=== PATIENT | male | born 1980 | race Caucasian/White ===

== ENCOUNTER 2017-05-10 11:24 | Emergency (ER) | payer OTHER ==
[2017-05-10 11:33] VITALS: BP 136/83; PULSE 100; RESP 18; TEMP 99.3; O2SAT 100
--- NOTE | 2017-05-10 12:36 | C.PDOC ---
History Of Present Illness 37 year old male presents to ED for evaluation of painful abscess to left groin for the past 3 days. Denies drainage, fever, chills, or any other complaints at this time. Time Seen by Provider: 05/10/17 11:54 Chief Complaint (Nursing): Abnormal Skin Integrity History Per: Patient History/Exam Limitations: no limitations Onset/Duration Of Symptoms: Days (3) Current Symptoms Are (Timing): Still Present Location Of Injury: Left: Perineum Quality Of Symptoms: Painful. denies: Draining Recent travel outside of the [place]: No Additional History Per: Patient Past Medical History Reviewed: Historical Data, Nursing Documentation, Vital Signs Vital Signs: Last Vital Signs Temp 99.3 F 05/10/17 11:31 Pulse 100 H 05/10/17 11:31 Resp 18 05/10/17 11:31 BP 136/83 05/10/17 11:31 Pulse Ox 100 05/10/17 12:49 Family History: States: Unknown Family Hx - Social History Hx Alcohol Use: Yes Hx Substance Use: No - Immunization History Hx Tetanus Toxoid Vaccination: No Hx Influenza Vaccination: No Hx Pneumococcal Vaccination: No Review Of Systems Except As Marked, All Systems Reviewed And Found Negative. Constitutional: Negative for: Fever, Chills Skin: Positive for: Other (painful abscess to left groin region) Physical Exam - Physical Exam Appears: Non-toxic, No Acute Distress Skin: Warm, Dry, Other (2 x 3cm area of tender, erythematous, fluctuant mass to left inguinal area) Head: Atraumatic, Normacephalic Eye(s): bilateral: Normal Inspection Gastrointestinal/Abdominal: Soft, No Tenderness, No Guarding, No Rebound, No Hernia Male Genital: Inguinal Tenderness (left) Extremity: Bilateral: Atraumatic, Normal ROM Neurological/Psych: Oriented x3, Normal Speech ED Course And Treatment O2 Sat by Pulse Oximetry: 100 (RA) Pulse Ox Interpretation: Normal Progress Note: Incision and drainage performed on the abscess. On exam the abscess is notably less fluctuant. The patient tolerated the procedure well, and there were no complications. - Incision & Drainage Of Abscess Anesthesia: Lidocaine 1% Prep Used: Sterile Water Procedure: Incised W/Scalpel Blade#: (15), Drained Pus, Irrigated Cavity W/ Saline, Packed W/Gauze Disposition - Disposition Referrals: [facility] at [facility] [Outside] Disposition: HOME/ ROUTINE Disposition Time: 12:54 Condition: STABLE Additional Instructions: Wound check in 2 days- return to ER on saturday Take meds as directed Return to ER if worse Prescriptions: Cephalexin [cephalexin] 500 mg PO Q6 #28 cap Ibuprofen [Motrin] 600 mg PO Q6H #20 tab Instructions: Abscess (ED) Forms: [employer] (Niuean) - Clinical Impression Clinical Impression: Abscess of groin, left - 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 - Scribe Statement The provider has reviewed the documentation as recorded by the Scribe Avelina Ramsey All medical record entries made by the Vijay were at my direction and personally dictated by me. I have reviewed the chart and agree that the record accurately reflects my personal performance of the history, physical exam, medical decision making, and the department course for this patient. I have also personally directed, reviewed, and agree with the discharge instructions and disposition.
== END 2017-05-10 13:06 | disposition home or self-care (01) ==
LOC: C.ER 11:24
DX: L02.214 Cutaneous abscess of groin (principal)

== ENCOUNTER 2017-05-13 13:10 | Emergency (ER) | payer OTHER ==
[2017-05-13 13:52] VITALS: BP 144/94; PULSE 107; RESP 20; TEMP 99; O2SAT 100
--- NOTE | 2017-05-13 14:07 | C.PDOC ---
History Of Present Illness 37 yr old male presents to the ER for wound check, s/p I&D of an abscess to the left groin on 05/10/2017. Patient reports of minimal pain to the area, 08/13. States this is his first follow up since the procedure. Patient denies fever, chills, nausea, vomiting, dysuria, drainage from the I&D site, weakness or numbness. Time Seen by Provider: 05/13/17 13:54 Chief Complaint (Nursing): Abnormal Skin Integrity History Per: Patient History/Exam Limitations: no limitations, language barrier (Raciel/Gujrati) Onset/Duration Of Symptoms: Days (3) Past Medical History Reviewed: Historical Data, Nursing Documentation, Vital Signs Vital Signs: Last Vital Signs Temp 99 F 05/13/17 13:35 Pulse 107 H 05/13/17 13:35 Resp 20 05/13/17 13:35 BP 144/94 H 05/13/17 13:35 Pulse Ox 100 05/13/17 14:21 Family History: States: No Known Family Hx - Social History Hx Alcohol Use: Yes Hx Substance Use: No - Immunization History Hx Tetanus Toxoid Vaccination: No Hx Influenza Vaccination: No Hx Pneumococcal Vaccination: No Review Of Systems Except As Marked, All Systems Reviewed And Found Negative. Constitutional: Negative for: Fever, Chills Gastrointestinal: Negative for: Nausea, Vomiting Genitourinary: Negative for: Dysuria Skin: Positive for: Other ((+) I&D to the left groin, no drainage) Neurological: Negative for: Weakness, Numbness Physical Exam - Physical Exam Appears: Non-toxic, No Acute Distress Skin: Warm, Dry, No Rash Head: Atraumatic, Normacephalic Oral Mucosa: Moist Male Genital: Other ((+) Firm, indurated region with small incision, no drainage , bandage is foul smelling) Extremity: Normal ROM, No Swelling Neurological/Psych: Oriented x3, Normal Speech, Normal Motor ED Course And Treatment O2 Sat by Pulse Oximetry: 100 (RA) Pulse Ox Interpretation: Normal Medical Decision Making Medical Decision Making: NOTE: Old packing is removed and the area is cleaned. New dressing and packing is applied. Instructed patient to follow up in 2 days. Disposition Counseled Patient/Family Regarding: Diagnosis, Need For Followup - Disposition Disposition: HOME/ ROUTINE Disposition Time: 14:19 Condition: STABLE Additional Instructions: Keep area clean and dry. Return to the Emergency Department or your doctor in 2 days for wound check. Forms: [facility] (Arabic), General Discharge Instructions - POA Present On Arrival: None - Clinical Impression Clinical Impression: Abscess of groin, left, Visit for wound check - Scribe Statement The provider has reviewed the documentation as recorded by the Dagmaribjeremie Jones Provider Attestation: All medical record entries made by the Dagmaribe were at my direction and personally dictated by me. I have reviewed the chart and agree that the record accurately reflects my personal performance of the history, physical exam, medical decision making, and the department course for this patient. I have also personally directed, reviewed, and agree with the discharge instructions and disposition.
== END 2017-05-13 14:40 | disposition home or self-care (01) ==
LOC: C.ER 13:10
DX: Z51.89 Encounter for other specified aftercare (principal); L02.214 Cutaneous abscess of groin

== ENCOUNTER 2017-05-17 11:22 | Emergency (ER) | payer OTHER ==
[2017-05-17 11:41] VITALS: RESP 18; TEMP 98.8
--- NOTE | 2017-05-17 12:16 | C.PDOC ---
History Of Present Illness 37 y/o male presents to the ED for wound check, s/p I&D of an abscess to the left groin on 05/10/2017. Pt notes the pain has improved. He took a shower this morning and the packing fell out. Pt is complaint with the antibiotics. The patient denies increased redness and swelling or fever. Time Seen by Provider: 05/17/17 11:49 Chief Complaint (Nursing): Wound Check History Per: Patient Onset/Duration Of Symptoms: Hrs Current Symptoms Are (Timing): Still Present Quality Of Symptoms: denies: Painful, Itching Additional History Per: Patient Past Medical History Reviewed: Historical Data, Nursing Documentation, Vital Signs Vital Signs: Last Vital Signs Temp 98.8 F 05/17/17 11:39 Pulse 102 H 05/17/17 12:24 Resp 18 05/17/17 12:24 BP 132/75 05/17/17 12:24 Pulse Ox 100 05/17/17 14:14 Surgical History: No Surg Hx Family History: States: No Known Family Hx - Social History Hx Alcohol Use: Yes Hx Substance Use: No - Immunization History Hx Tetanus Toxoid Vaccination: No Hx Influenza Vaccination: No Hx Pneumococcal Vaccination: No Review Of Systems Except As Marked, All Systems Reviewed And Found Negative. Genitourinary: Negative for: Rash Skin: Positive for: Other (s/p abscess). Negative for: Rash Physical Exam - Physical Exam Appears: Well, Non-toxic, No Acute Distress Skin: Dry, Other ((+) incision to the left groin with thick white discharge, no surrounding erythema, no packing , (+) induration) Head: Atraumatic Eye(s): bilateral: Normal Inspection, EOMI Nose: Normal Oral Mucosa: Moist Neck: Normal ROM, Supple Chest: Symmetrical Respiratory: No Accessory Muscle Use Gastrointestinal/Abdominal: Soft, No Tenderness Back: No CVA Tenderness Extremity: Capillary Refill (2<sec. ) Neurological/Psych: Oriented x3 Gait: Steady ED Course And Treatment O2 Sat by Pulse Oximetry: 100 (RA) Progress Note: Wound was irrigated, additional purulent discharge expelled. Additional packing inserted. Instructed wound check in 2 days. Radiotelephone Technical Operator used to ensure understanding. Disposition - Disposition Disposition: HOME/ ROUTINE Disposition Time: 12:16 Condition: STABLE Additional Instructions: Return in 2 days. 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 - Scribe Statement The provider has reviewed the documentation as recorded by the Dagmaribe Maryana Ramsey
[2017-05-17] MEDS ORDERED: Tmp-Smz 800 mg-160 mg DS Tab ONE (12:23)
[2017-05-17 12:24] VITALS: BP 132/75; PULSE 102
[2017-05-17 12:58] VITALS: O2SAT 100
== END 2017-05-17 12:24 | disposition home or self-care (01) ==
LOC: C.ER 11:22
DX: L02.214 Cutaneous abscess of groin (principal)

== ENCOUNTER 2017-05-21 11:01 | Emergency (ER) | payer SELFPAY ==
[2017-05-21 11:28] VITALS: BMI 19.9
[2017-05-21 11:30] VITALS: BP 140/87; PULSE 100; RESP 18; TEMP 98.6; O2SAT 100
[2017-05-21] MEDS ORDERED: Bacitracin 500 Units/gm Oint Foilpak UD TOP ONE (12:23)
--- NOTE | 2017-05-21 12:26 | C.PDOC ---
History Of Present Illness 37-year-old male, presents to the emergency department for wound check. Patient comes in s/p I&D of an abscess to the left groin on 05/10/2017. Pt notes the pain has improved. He took a shower this morning and the packing fell out. Pt is complaint with the antibiotics. The patient denies increased redness and swelling or fever. Time Seen by Provider: 05/21/17 11:42 Chief Complaint (Nursing): Wound Check History Per: Patient History/Exam Limitations: no limitations Onset/Duration Of Symptoms: Days Ago (11) Current Symptoms Are (Timing): Better Past Medical History Reviewed: Historical Data, Nursing Documentation, Vital Signs Vital Signs: Last Vital Signs Temp 98.6 F 05/21/17 11:27 Pulse 100 H 05/21/17 11:27 Resp 18 05/21/17 12:45 BP 140/87 05/21/17 11:27 Pulse Ox 100 05/21/17 13:54 Family History: States: No Known Family Hx - Social History Hx Alcohol Use: Yes Hx Substance Use: No - Immunization History Hx Tetanus Toxoid Vaccination: No Hx Influenza Vaccination: No Hx Pneumococcal Vaccination: No Review Of Systems Constitutional: Negative for: Fever, Chills Gastrointestinal: Negative for: Nausea, Vomiting Physical Exam - Physical Exam Appears: Non-toxic, No Acute Distress Skin: Warm, Dry, Other (Left groin: there is a well healing incision area. No induration, no warmth, No erythema/fluctuance. Packing is intact) Neck: Normal ROM Extremity: Normal ROM Neurological/Psych: Normal Speech ED Course And Treatment O2 Sat by Pulse Oximetry: 100 (on RA) Pulse Ox Interpretation: Normal Progress Note: Packing removed, and area was dressed with Bacitracin. Patient will be discharged home for outpatient f/u with [facility]. Asked to return for any new or worsening symptoms. All questions answered Disposition Counseled Patient/Family Regarding: Diagnosis, Need For Followup - Disposition Referrals: [facility] [Outside] Disposition: HOME/ ROUTINE Disposition Time: 12:30 Condition: STABLE Additional Instructions: FOLLOW UP WITH YOUR DOCTOR/CLINIC IN 1-2 DAYS RETURN TO ER IF SYMPTOMS WORSEN Instructions: Acute Wound Care (ED) Forms: [email or web address] (Kiswahili) Print Language: LAO - Clinical Impression Clinical Impression: Wound check, abscess - Scribe Statement The provider has reviewed the documentation as recorded by the Scribe (Aleksey Perry) All medical record entries made by the Scribe were at my direction and personally dictated by me. I have reviewed the chart and agree that the record accurately reflects my personal performance of the history, physical exam, medical decision making, and the department course for this patient. I have also personally directed, reviewed, and agree with the discharge instructions and disposition.
[2017-05-21] MEDS ORDERED: Bacitracin 500 Units/gm Oint Foilpak UD ONE (12:37)
== END 2017-05-21 12:45 | disposition home or self-care (01) ==
LOC: C.ER 11:01
DX: Z51.89 Encounter for other specified aftercare (principal); L02.214 Cutaneous abscess of groin